=== PATIENT | female | born 1990 | race Caucasian/White ===

== ENCOUNTER 2022-04-16 02:14 | Emergency (ER) | payer SELFPAY ==
[~2022-04-16] VITALS: Ht 157.5 cm; Wt 74.5 kg
--- NOTE | 2022-04-16 02:46 | NUR ---
DR. KENNEDY AT BEDSIDE, MSE IN PROGRESS.
[2022-04-16] MEDS ORDERED: OXYCODONE/APAP 5-325 MG TABLET ONE ×2 (02:59→03:46)
[2022-04-16] MEDS ORDERED: ONDANSETRON HCL 4 MG TABLET ONE (02:59)
[2022-04-16] MEDS: ONDANSETRON HCL 4 MG TABLET PO ONE (03:01)
[2022-04-16] MEDS: OXYCODONE/APAP 5-325 MG TABLET PO ONE ×2 (03:01→03:48)
--- NOTE | 2022-04-16 03:14 | NUR ---
XRAY AT BEDSIDE.
[2022-04-16] MEDS ORDERED: ONDA4TAB5 PO (03:35)
[2022-04-16] MEDS ORDERED: OXYC-128 PO (03:35)
--- NOTE | 2022-04-16 03:59 | NUR ---
Patient discharged to home in stable condition. Written and verbal after care instructions given. Patient verbalizes understanding of instructions. Stressed follow up or return to ER for worsening s/s. Steady gait. Picked up by . No changes in LOC.
[2022-04-16 04:00] VITALS: BP 112/70
== END 2022-04-16 04:00 | disposition home or self-care (01) ==
LOC: ER 02:19
DX: S00.93XA Contusion of unspecified part of head, initial encounter (principal); S16.1XXA Strain of muscle, fascia and tendon at neck level, initial encounter; S39.012A Strain of muscle, fascia and tendon of lower back, initial encounter; S29.012A Strain of muscle and tendon of back wall of thorax, initial encounter; V49.50XA Passenger injured in collision with unspecified motor vehicles in traffic accident, initial encounter; Y92.410 Unspecified street and highway as the place of occurrence of the external cause
CPT/HCPCS: 71045; 72072; 72100; A4663; Q0162